=== PATIENT | female | born 1990 | race Caucasian/White ===

== ENCOUNTER 2016-06-01 23:24 | Inpatient (IN) | payer MEDICAID ==
[2016-06-01 23:46] VITALS: BP 105/57
[2016-06-02] MEDS ORDERED: Morphine Sulfate 2 mg/mL 1mL Syr IVP PRN ×2 (00:08→00:15)
[2016-06-02] MEDS: D5-0.9%NS 1,000 ML IV SCH ×2 (00:59→12:02)
[2016-06-02] MEDS ORDERED: Piperacillin Sodium/Tazobact 3.375 gm Vial IV ONE (01:48)
[2016-06-02 06:55] LABS: URINE BACTERIA OCCASIONAL /hpf (NONE SEEN); URINE BILIRUBIN SMALL (NEGATIVE); URINE BLOOD NEGATIVE (NEGATIVE); URINE COLOR YELLOW; URINE EPITHELIAL CELLS OCCASIONAL /lpf (FEW); URINE GLUCOSE (UA) NEGATIVE (NEGATIVE); URINE KETONE TRACE mg/dL (NEGATIVE); URINE PH 5.5; URINE PROTEIN NEGATIVE (NEGATIVE); URINE RBC NONE SEEN /hpf (0-5); URINE UROBILINOGEN 0.2 E.U./dL (0.2 - 1.0); URINE WBC 0-2 /hpf (0-5)
[2016-06-02 07:02] LABS: HEMATOCRIT 30.4 % (35.0-45.0); HEMOGLOBIN 10.8 gm/dL (11.7-15.5); MEAN CELL VOLUME 93.5 fl (81-100); MEAN CORPUSCULAR HEMOGLOBIN 33.2 pg (27.0-31.0); MEAN CORPUSCULAR HGB CONC 35.5 pg (28.0-36.0); MEAN PLATELET VOLUME 7.9 fl; PLATELET COUNT 325 Th/cmm (150-400); RED BLOOD COUNT 3.25 Mil/cmm (3.80-5.10); RED CELL DISTRIBUTION WIDTH 12.8 % (11.5-20.0); WHITE BLOOD COUNT 8.4 Th/cmm (4.8-10.8)
[2016-06-02 07:15] LABS: ALB/GLOB RATIO 1.2 (1.0-1.8); ALKALINE PHOSPHATASE 1107 U/L (34-104); AMYLASE SERUM 1208 U/L (29-103); ANION GAP 11.3 (7.0-16.0); BILIRUBIN,TOTAL 3.3 mg/dL (0.3-1.0); BUN - UREA NITROGEN 10 mg/dL (7-25); CALCIUM SERUM 8.6 mg/dL (8.6-10.3); CARBON DIOXIDE 21.9 mEq/L (21.0-31.0); CHLORIDE 109 mEq/L (98-107); CREATININE - SERUM 0.5 mg/dL (0.6-1.2); GLUCOSE 95 mg/dL (70-105); POTASSIUM SERUM 3.2 mEq/L (3.5-5.1); SGOT 240 U/L (13-39); SGPT/ALT 417 U/L (7-52); SODIUM SERUM 139 mEq/L (136-145)
[2016-06-02 08:10] LABS: LIPASE 3074 U/L (11-82)
[2016-06-02 08:39] LABS: BAND NEUTROPHILE 1 % (0-10); EOSINOPHIL 2 % (0-5); NEUTROPHILS 66 % (40-80); PLATELET ESTIMATE ADEQUATE (NORMAL); PLATELET MORPHOLOGY NORMAL (NORMAL); TOTAL CELLS COUNTED 100
--- NOTE | 2016-06-02 16:46 | History & Physical ---
CHIEF COMPLAINT: Abdominal pain. HISTORY OF PRESENT ILLNESS: The patient is a 25-year-old female presented to [facility] from the ER with complaints of 2 weeks of worsening epigastric pain. The patient states the pain is aching and radiates to right upper quadrant. This pain associated vomiting and diarrhea for one day. The patient denies fever, chills, chest pain, shortness of breath, cough or other complaints. The patient states she is able to tolerate p.o. intake. PAST MEDICAL HISTORY: Negative. PAST SURGICAL HISTORY: . MEDICATIONS: See medication reconciliation form. ALLERGIES: No known drug allergies. REVIEW OF SYSTEMS: See history of present illness. PHYSICAL EXAMINATION: VITAL SIGNS: On admission, temperature 98, pulse 78, blood pressure 105/57, respiration 18, O2 sat 98% on room air. GENERAL: The patient is awake, alert, nontoxic in appearance. HEENT: Normocephalic, atraumatic. Extraocular movements intact. Oropharynx clear. NECK: Supple. No thyromegaly. No lymphadenopathy. CARDIOVASCULAR: S1, S2 with no murmurs, rubs or gallops. RESPIRATORY: Clear. No wheezing or rhonchi. GASTROINTESTINAL: Soft, diffuse tenderness. Nondistended. Positive bowel sounds. GENITOURINARY: No CVA tenderness. No suprapubic tenderness. BACK: No midline tenderness. EXTREMITIES: Equal pulses bilaterally. No cyanosis, clubbing. SKIN: Negative. PSYCHIATRIC: Negative. NEUROLOGIC: Cranial nerves 2-12 intact. Extraocular movements are intact. Sensation is intact. Motor is intact. Bilateral lower grossly normal. LABORATORY DATA: On admission as follows. Hematology: WBC 8.4, hemoglobin 10.8, hematocrit 32.4, platelet count of 325, no left shift. ESR is 36. Chemistry: Sodium 139, potassium 3.2, chloride 90, bicarbonate 21, anion gap 11, BUN 10, creatinine 0.5, GFR more than 60, glucose 95, calcium 8.6, total bilirubin is 2.3, AST 240, ALT is 417, alkaline phosphatase 1107, total protein 5.8, albumin 3.2, globulin 2.6, amylase per labs and lipase is 3084. Urinalysis shows small bilirubin. Microbiology culture results pending. RADIOLOGY: Ultrasound performed at [facility] from the ER shows echogenic liver, nonspecific and seen with fatty infiltration. Cholelithiasis. Pericholecystic fluids. Medication given. Common bile duct is dilated. The intrahepatic bile ducts are dilated. Choledocholithiasis and large pancreas. Dilated pancreas. Small free fluid adjacent to the pancreas. IMPRESSION: 1. SRS. 2. Choledocholithiasis. 3. Acute pancreatitis secondary to gallstones. 4. Abdominal pain. 5. Nausea and vomiting. 6. Diarrhea. 7. Anemia. 8. Hyperkalemia. 9. Transaminitis. PLAN: The patient is admitted to Med-Surg unit. Seen on admission by Solomon Pillai. GI consultation, Dr. Schneider and associates. General Surgery consultation with Dr. [facility]. Obtain further labs and consultation. JOB# [id number] RAFIQ
[2016-06-02] MEDS: KCL 20mEq/100mL Premix 20 MEQ/100 ML PIGGYBACK IV SCH ×2 (17:41→20:09)
--- NOTE | 2016-06-02 21:03 | Admit Criteria Form ---
Admit Criteria Forms - Admit Criteria Diagnosis: PANCREATITIS Clinical Indications for Admission to Inpatient Care (Place 'X' for any and all applicable criteria): Admission is indicated for ANY ONE of the following (1)(2)(3)(4): [X]I. Acute pancreatitis[A] as indicated by 2 or more of the following: [X]a) Abdominal pain (eg, epigastric, left upper quadrant) [X]b) Serum amylase or serum lipase greater than 3 times the upper limit of normal [ ]c) Characteristic findings from abdominal imaging (eg, pancreatic inflammation, pancreatic necrosis, peripancreatic fluid collection)[B] [ ]II. Pancreatitis (acute or chronic ) requiring inpatient care as indicated by 1 or more of the following [ ]a) Inability to maintain oral hydration Hypoxemia [ ]b) Evidence of infection (eg, fever, peripancreatic abscess) [ ]c) Severe pain requiring acute inpatient management [ ]d) Hemodynamic instability [ ]e) Hypoxemia [ ]f) Acute renal failure [ ]g) Severe electrolyte abnormalities Extended stay beyond goal length of stay may be needed for (1)(11) [ ]a) Severe acute pancreatitis (10)(19) [ ]b) Persistent symptoms, ascites, or pleural effusion [ ]c) Abdominal compartment syndrome (10) [ ]d) Late complications [ ]e) Acute renal failure (27) [ ]f) Gallstones in gallbladder The original [employer] content created by [employer] has been revised. The portions of the content which have been revised are identified through the use of italic text or in bold,and [facility] has neither reviewed nor approved the modified material.All other unmodified content is copyright [facility]. Please see references footnoted in the original [facility] edition 2016 Admit Criteria Met?: Yes
[2016-06-03] MEDS: D5-0.9%NS 1,000 ML IV SCH ×2 (01:26→17:58)
--- NOTE | 2016-06-03 01:49 | Consultation ---
DATE OF CONSULTATION NOTE: 06/02/2016 at 10:00 p.m. HISTORY OF PRESENT ILLNESS: The patient is a 25-year-old female presented to [place] ER with complaints of weeks of worsening epigastric and right upper quadrant abdominal pain. She described it as a stabbing type of pain, worsening with eating foods, associated with vomiting and one episode of diarrhea. She denies any fevers or chills, chest pain, or shortness of breath. She has no chronic GI-related problems. PAST MEDICAL HISTORY: Normal. Benign. PAST SURGICAL HISTORY: . MEDICATIONS: See medication reconciliation form. ALLERGIES: No known drug allergies. REVIEW OF SYSTEMS: Otherwise negative except for GI as described above. PHYSICAL EXAMINATION: VITAL SIGNS: She is 56 kilograms. BMI is 22.9. She is afebrile. Temperature 99.0. Vital signs otherwise stable. GENERAL: She is awake, alert, in no acute distress. She is resting in bed comfortably. HEAD AND NECK: Within normal limits. She has no neck, axillary, or inguinal lymphadenopathy. LUNGS: Clear to auscultation bilaterally. There are no crackles, rales, rhonchi, or wheezing. CARDIAC: Regular rhythm and rate. No murmurs, rubs, or gallops. S1 and S2 is normal. ABDOMEN: Mild tenderness diffusely. There is no guarding, rebound, or generalized peritoneal sign. NEUROVASCULAR: Otherwise normal. No CVA, flank, or paraspinal tenderness. LABORATORY DATA: White blood cell count 8.4, H and H is 10.8 and 30.4, and platelet count 325,000. Potassium 3.2. Her bilirubin 3.3, AST is 240, ALT is 417, alkaline phosphatase . Her amylase is 1208 and lipase is 3074. She has urine bilirubin small. She has occasional urine bacteria. Her transfer records show that the gallbladder demonstrates multiple calculi. The gallbladder wall appears normal and measures 2.49. Pericholecystic fluid is visualized. Linda sign could not be evaluated due to medication. The common bile duct is dilated. Intrahepatic bile ducts are dilated as well as choledocholithiasis and large pancreas, dilated pancreatic duct. Review of records from [place]. IMPRESSION AND PLAN: Abdominal pain, abdominal tenderness, no chronic gastrointestinal-related problems or significant past medical history. She is afebrile. She has tenderness on examination. She describes her pain as 9/10 in severity. Her white blood cell count is normal, but her liver function tests are elevated, and lipase and amylase levels are high as well to recommend obtaining a CT. We will obtain an MRCP to rule out common bile duct stones. I have discussed with her the risks and benefits of laparoscopic cholecystectomy including bleeding, infection, bile duct leak, and bile duct injury. She agrees to eventual laparoscopic cholecystectomy on this admission once the common bile duct issue is cleared. If the MRCP or CT scan confirms choledocholithiasis, she may need ERCP by GI prior to the laparoscopic cholecystectomy tentatively looking at the laparoscopic cholecystectomy sometime early next week, Saturday or Saturday. [facility]# [id number]
[2016-06-03 07:33] LABS: ALB/GLOB RATIO 1.2 (1.0-1.8); ALKALINE PHOSPHATASE 1107 U/L (34-104); AMYLASE SERUM 619 U/L (29-103); BILIRUBIN,TOTAL 2.3 mg/dL (0.3-1.0); BUN - UREA NITROGEN 6 mg/dL (7-25); CHLORIDE 104 mEq/L (98-107); CREATININE - SERUM 0.4 mg/dL (0.6-1.2); GLUCOSE 86 mg/dL (70-105); LIPASE 1090 U/L (11-82); SGOT 175 U/L (13-39); SGPT/ALT 374 U/L (7-52); SODIUM SERUM 135 mEq/L (136-145)
[2016-06-03 08:05] LABS: HEMATOCRIT 30.3 % (35.0-45.0); HEMOGLOBIN 10.7 gm/dL (11.7-15.5); MEAN CELL VOLUME 93.4 fl (81-100); MEAN CORPUSCULAR HEMOGLOBIN 33.1 pg (27.0-31.0); MEAN CORPUSCULAR HGB CONC 35.4 pg (28.0-36.0); MEAN PLATELET VOLUME 7.7 fl; PLATELET COUNT 286 Th/cmm (150-400); RED BLOOD COUNT 3.24 Mil/cmm (3.80-5.10); RED CELL DISTRIBUTION WIDTH 12.7 % (11.5-20.0); WHITE BLOOD COUNT 9.1 Th/cmm (4.8-10.8)
[2016-06-03 08:59] LABS: BAND NEUTROPHILE 1 % (0-10); EOSINOPHIL 4 % (0-5); NEUTROPHILS 51 % (40-80); TOTAL CELLS COUNTED 100
[2016-06-03 09:00] LABS: PLATELET ESTIMATE ADEQUATE (NORMAL); PLATELET MORPHOLOGY NORMAL (NORMAL)
[2016-06-03] MEDS: KCL 20mEq/100mL Premix 20 MEQ/100 ML PIGGYBACK IV SCH ×2 (10:29→18:13)
--- NOTE | 2016-06-03 11:23 | Diagnostic Imaging Report ---
CT scan abdomen and pelvis without intravenous contrast HISTORY: Pain Total DLP equals 389 CTDI equals 8.0 Limited sections through the lower chest demonstrate a small left pleural effusion and nonspecific parenchymal density in the left lower lobe. Minimal right pleural effusion also noted. Nonspecific parenchymal density seen in the right lung base. The liver exhibits a homogeneous parenchyma. No focal lesions. The spleen appears normal. There is suboptimal delineation of the margins of the pancreas due to the absence of adjacent bowel contrast. Nonetheless, appears to be generalized pancreatic enlargement. No discrete focal lesions are seen. Pancreatitis cannot be excluded. Clinical correlation and correlation with laboratory data needed. No focal renal lesions. The exam of the pelvis demonstrates preservation of normal fat planes. No abnormal soft tissue masses or abnormal fluid collections. No significant bowel dilatation. There is a distended urinary bladder. IMPRESSION: 1. Generalized pancreatic enlargement. No focal lesions. Changes associated with pancreatitis cannot be excluded. Clinical correlation needed. 2. Small bilateral pleural effusions (left greater than right). Additional nonspecific parenchymal changes noted in the lower lobes of the lungs are
[2016-06-03] MEDS ORDERED: KCL 20mEq/100mL Premix 20 MEQ/100 ML PIGGYBACK IV ONE (18:06)
--- NOTE | 2016-06-03 21:23 | Progress Notes ---
SUBJECTIVE: The patient has diminished abdominal pain, barely appreciable at this time. OBJECTIVE: VITAL SIGNS: She is afebrile. Her vital signs are otherwise stable. GENERAL: She is awake, alert and oriented, in no acute distress, resting in bed. CHEST: Clear to auscultation bilaterally. She has no crackles, rales, rhonchi or wheezing. CARDIAC: Regular rhythm and rate. No murmurs, rubs or gallops. S1, S2 is normal. ABDOMEN: Soft. She has some mild tenderness in the mid abdomen. There is no guarding, rebound or generalized peritoneal sign. NEUROVASCULAR: Otherwise normal. HEENT: She has no icteric sclerae or jaundice. LABORATORY DATA: Today, her white blood cell count 9.1, H and H is 10.7 and 30.3, platelet count is 286. Her potassium level is 3.0. Her total bilirubin is 2.3, down from 3.3. AST is 175, ALT 374, alkaline phosphatase 1107, lipase is 1090. Her CT abdomen and pelvis shows generalized pancreatic enlargement, no focal lesions, changes associated with pancreatitis cannot be excluded, small bilateral pleural effusion left greater than right, no obvious gallstones or cholecystitis findings. ASSESSMENT/PLAN: The patient with abdominal pain and tenderness, although improved at this time. She is afebrile. Her liver function tests are still elevated. She had a CT scan, which is not the greatest for evaluating the common bile duct for stones, but shows no obvious biliary dilation. GI evaluation for possible ERCP evaluation. Other alternative is to proceed with laparoscopic cholecystectomy with planned intraoperative cholangiogram, which could be planned tomorrow. I will keep her n.p.o. after midnight and repeat the labs tomorrow. IV antibiotics empirically. The patient is agreeable to surgery. All the risks and benefits of the procedure were explained including bleeding, infection, bile duct injury, bile duct leak and possibility of conversion to open cholecystectomy. JOB# [id number]
--- NOTE | 2016-06-03 23:28 | Consultation ---
REASON FOR CONSULTATION: This is a 25-year-old female who was brought to the Emergency Room at [facility] with complaint of epigastric pain, nausea and vomiting for 2 weeks. HISTORY OF PRESENT ILLNESS: The patient started having above symptoms 2 weeks prior to arrival at [place] ER, gradually got worse and she started having diarrhea. She was evaluated in the ER and was found to have pericholecystic fluid suggestive of cholecystitis and gallstones, transferred to [facility]. Infectious consultation was called. The patient's antibiotic adjusted, examined as soon as possible. PAST MEDICAL HISTORY: and cholelithiasis. FAMILY HISTORY: Negative. SOCIAL HISTORY: Nonsmoker. REVIEW OF SYSTEMS: A 14-point review of system negative except above. PHYSICAL EXAMINATION: GENERAL: The patient is alert, awake, young female. VITAL SIGNS: Temperature 98.6, pulse 76, respiration is 18, blood pressure 104/61. HEENT: Mild pallor. No icterus. No plaque. NECK: Supple. No ____. LUNGS: Breath sounds bilateral vesicular. CARDIOVASCULAR: S1, S2. ABDOMEN: Epigastric tenderness present. No rebound tenderness, no ascites. No ____. NEUROLOGIC: No focal deficit. MUSCULOSKELETAL: Joints are not swollen. LABORATORY DATA: White count is 8000, hemoglobin is 10 g, platelets 325. Blood culture negative so far. DIAGNOSES: 1. Abdominal pain secondary to cholecystitis. 2. section. PLAN: The patient was started on Zosyn. Supportive care. Surgical evaluation. The patient will also need GI evaluation with ERCP versus MRCP to rule out CBD stone. Rest of the care as ordered in [facility]. Thank you, Dr. Pillai, for this consultation. JOB# [id number]
--- NOTE | 2016-06-04 00:41 | Consultation ---
REASON FOR CONSULT: Abdominal pain, abnormal LFTs. HISTORY OF PRESENT ILLNESS: This is a 25-year-old female ____ significant past medical history, who presents with both epigastric and right upper quadrant pain for the last several weeks. The patient states pain has persisted and gotten worse, subsequently prompting her to visit the Emergency Room for further evaluation. The patient states that the pain is worse with eating; however, she ____. She had associated nausea, vomiting, and diarrhea. The patient had labs done showing elevation of her lipase as well as elevated LFTs consistent with possible pancreatitis. PAST MEDICAL HISTORY: As per HPI. PAST SURGICAL HISTORY: Prior . ALLERGIES: The patient has no known drug allergies. MEDICATIONS: Please see medication reconciliation form. FAMILY HISTORY: No family history of GI malignancies. REVIEW OF SYSTEMS: As per HPI. PHYSICAL EXAMINATION: VITAL SIGNS: Temperature is 98, pulse 91, respirations 20, blood pressure 106/70. GENERAL: No acute distress. CARDIOVASCULAR: Regular ____ rhythm. ABDOMEN: Slight tenderness on palpation of the epigastric and right upper quadrant region. EXTREMITIES: No deformities. LABORATORY DATA: White count 8.4, hemoglobin 10.8, platelets are 325. Total bilirubin is 2.3, AST is ____, ALT is 374, alkaline phosphatase 1107, lipase is 3074. ASSESSMENT AND PLAN: This is a 25-year-old female with likely gallstone pancreatitis. Continue supportive care, IV fluids for treatment of pancreatitis. We will obtain MRCP to rule out underlying common bile duct stone. If this is positive, we will need ERCP. The patient also has been seen by Surgery and will likely need eventual cholecystectomy as well. Thank you for this consult and allowing me to participate in the care of this patient. JOB# [id number]
[2016-06-04 06:01] LABS: HEMATOCRIT 30.2 % (35.0-45.0); HEMOGLOBIN 10.6 gm/dL (11.7-15.5); MEAN CELL VOLUME 93.2 fl (81-100); MEAN CORPUSCULAR HEMOGLOBIN 32.6 pg (27.0-31.0); MEAN CORPUSCULAR HGB CONC 34.9 pg (28.0-36.0); MEAN PLATELET VOLUME 7.8 fl; PLATELET COUNT 309 Th/cmm (150-400); RED BLOOD COUNT 3.24 Mil/cmm (3.80-5.10); RED CELL DISTRIBUTION WIDTH 12.3 % (11.5-20.0); WHITE BLOOD COUNT 7.6 Th/cmm (4.8-10.8)
[2016-06-04 06:04] LABS: INR 1.01 (0.5-1.4); PROTHROMBIN TIME (TEST) 10.5 SECONDS (9.5-11.5)
--- NOTE | 2016-06-04 06:06 | Progress Notes ---
SUBJECTIVE: The patient is awake and alert. The patient is on IV antibiotics. The patient is on IV fluids. The patient is tolerating p.o. intake. OBJECTIVE: VITAL SIGNS: Temperature 98.6, pulse 70, blood pressure 138/87, respirations 19 and O2 saturation is 98% on room air. CARDIOVASCULAR: S1 and S2. No murmurs, rubs or gallops. RESPIRATORY: Clear. No wheeze or rhonchi. GASTROINTESTINAL: Soft, mild tender, nondistended. Positive bowel sounds. LABORATORY DATA: Hematology, WBC 9.1, hemoglobin 10.7, hematocrit 30.3, platelet count of 286 and 11% monocytes. ESR 65. Chemistry: Sodium is 135, potassium 3.0, chloride 104, bicarbonate 24, anion gap 10, BUN 6, creatinine 0.4, GFR is more than 160, glucose 86 and calcium 9.0. Total bilirubin 2.3, AST is 175, ALT is per labs and alkaline phosphatase 1107. Total protein 0.6, albumin 3.3, globulin 2.7. Amylase is 619, lipase is 1090. MICROBIOLOGY: MRSA screen from June 02 is negative. Blood culture from June 02 pending. RADIOLOGY: Abdominal pelvis CT performed on June 03, shows generalized pancreatic enlargement, no focal lesions, changes suggest pancreatitis could not be excluded and small bilateral pleural effusion, left greater than right. ASSESSMENT: 1. Acute pancreatitis. 2. Anemia. 3. Hyponatremia. 4. Hyperkalemia. 5. Transaminitis. 6. Hypoalbuminemia. 7. SIRS syndrome. 8. Cholelithiasis. 9. Abdominal pain (improved). 10. Nausea and vomiting (resolved). 11. Diarrhea (resolved). PLAN: Continue current medications and treatment. Obtain labs a.m. Awaiting MRCP results. The patient is planning for surgery on Saturday or Saturday. Further recommendations per consults. JOB# [id number] [facility]
[2016-06-04 06:22] LABS: ALB/GLOB RATIO 1.3 (1.0-1.8); ALKALINE PHOSPHATASE 1031 U/L (34-104); ANION GAP 11.1 (7.0-16.0); BILIRUBIN,TOTAL 1.8 mg/dL (0.3-1.0); BUN - UREA NITROGEN 6 mg/dL (7-25); CALCIUM SERUM 8.5 mg/dL (8.6-10.3); CARBON DIOXIDE 21.4 mEq/L (21.0-31.0); CHLORIDE 107 mEq/L (98-107); CREATININE - SERUM 0.4 mg/dL (0.6-1.2); GLUCOSE 89 mg/dL (70-105); POTASSIUM SERUM 3.5 mEq/L (3.5-5.1); SGOT 93 U/L (13-39); SGPT/ALT 298 U/L (7-52); SODIUM SERUM 136 mEq/L (136-145)
[2016-06-04 06:44] LABS: LIPASE 1191 U/L (11-82)
[2016-06-04 08:29] LABS: EOSINOPHIL 13 % (0-5); NEUTROPHILS 51 % (40-80); PLATELET ESTIMATE ADEQUATE (NORMAL); PLATELET MORPHOLOGY NORMAL (NORMAL); TOTAL CELLS COUNTED 100
--- NOTE | 2016-06-04 15:00 | Infectious Disease Prog Note ---
Infectious Disease Subjective - Review of Systems Service Date: 06/04/16 Events since last encounter: cc cholecystitis hpi- pt refused cholecystitectomy d/c plan woth po augmentin ros no fever o/e vss chest claer abd soft ext no edema dx cholecystitis plan as above Infectious Disease Objective - Results Result Diagrams: 06/04/16 05:15 06/04/16 05:15 Recent Labs: Laboratory Last Values WBC 7.6 Th/cmm (4.8-10.8) 06/04/16 05:15 RBC 3.24 Mil/cmm (3.80-5.10) L 06/04/16 05:15 Hgb 10.6 gm/dL (11.7-15.5) L 06/04/16 05:15 Hct 30.2 % (35.0-45.0) L 06/04/16 05:15 MCV 93.2 fl (81-100) 06/04/16 05:15 MCH 32.6 pg (27.0-31.0) H 06/04/16 05:15 MCHC Differential 34.9 pg (28.0-36.0) 06/04/16 05:15 RDW 12.3 % (11.5-20.0) 06/04/16 05:15 Plt Count 309 Th/cmm (150-400) 06/04/16 05:15 MPV 7.8 fl 06/04/16 05:15 Band Neutrophils % 1 % (0-10) 06/03/16 06:45 Neutrophils (Manual) 51 % (40-80) 06/04/16 05:15 Lymphocytes 30 % (20-50) 06/04/16 05:15 Monocytes 6 % (2-10) 06/04/16 05:15 Eosinophils 13 % (0-5) H 06/04/16 05:15 Platelet Estimate ADEQUATE (NORMAL) 06/04/16 05:15 Platelet Morphology NORMAL (NORMAL) 06/04/16 05:15 RBC Morph Micro Appear NORMAL (NORMAL) 06/04/16 05:15 ESR 62 mm/hr (0-30) H 06/04/16 05:15 PT 10.5 SECONDS (9.5-11.5) 06/04/16 05:15 INR 1.01 (0.5-1.4) 06/04/16 05:15 Sodium 136 mEq/L (136-145) 06/04/16 05:15 Potassium 3.5 mEq/L (3.5-5.1) 06/04/16 05:15 Chloride 107 mEq/L (98-107) 06/04/16 05:15 Carbon Dioxide 21.4 mEq/L (21.0-31.0) 06/04/16 05:15 Anion Gap 11.1 (7.0-16.0) 06/04/16 05:15 BUN 6 mg/dL (7-25) L 06/04/16 05:15 Creatinine 0.4 mg/dL (0.6-1.2) L 06/04/16 05:15 Est GFR ( Amer) > 60.0 ml/min (>90) 06/04/16 05:15 Est GFR (Non-Af Amer) > 60.0 ml/min 06/04/16 05:15 BUN/Creatinine Ratio 15.0 06/04/16 05:15 Glucose 89 mg/dL (70-105) 06/04/16 05:15 Calcium 8.5 mg/dL (8.6-10.3) L 06/04/16 05:15 Total Bilirubin 1.8 mg/dL (0.3-1.0) H 06/04/16 05:15 AST 93 U/L (13-39) H 06/04/16 05:15 ALT 298 U/L (7-52) H 06/04/16 05:15 Alkaline Phosphatase 1031 U/L (34-104) H 06/04/16 05:15 C-Reactive Protein 2.9 mg/dL (0.0-0.9) H 06/04/16 05:15 Total Protein 5.6 gm/dL (6.0-8.3) L 06/04/16 05:15 Albumin 3.2 gm/dL (3.7-5.3) L 06/04/16 05:15 Globulin 2.4 gm/dL 06/04/16 05:15 Albumin/Globulin Ratio 1.3 (1.0-1.8) 06/04/16 05:15 Amylase 619 U/L (29-103) H 06/03/16 06:45 Lipase 1191 U/L (11-82) H 06/04/16 05:15 Urine Source CLEAN C 06/02/16 06:00 Urine Color YELLOW 06/02/16 06:00 Urine Clarity SL. CLOUDY (CLEAR) 06/02/16 06:00 Urine pH 5.5 06/02/16 06:00 Ur Specific [place] 1.025 (1.005-1.030) 06/02/16 06:00 Urine Protein NEGATIVE mg/dL (NEGATIVE) 06/02/16 06:00 Urine Glucose (UA) NEGATIVE mg/dL (NEGATIVE) 06/02/16 06:00 Urine Ketones TRACE mg/dL (NEGATIVE) 06/02/16 06:00 Urine Blood NEGATIVE (NEGATIVE) 06/02/16 06:00 Urine Nitrate NEGATIVE (NEGATIVE) 06/02/16 06:00 Urine Bilirubin SMALL (NEGATIVE) H 06/02/16 06:00 Urine Urobilinogen 0.2 E.U./dL (0.2 - 1.0) 06/02/16 06:00 Ur Leukocyte Esterase NEGATIVE (NEGATIVE) 06/02/16 06:00 Urine RBC NONE SEEN /hpf (0-5) 06/02/16 06:00 Urine WBC 0-2 /hpf (0-5) 06/02/16 06:00 Ur Epithelial Cells OCCASIONAL /lpf (FEW) 06/02/16 06:00 Urine Bacteria OCCASIONAL /hpf (NONE SEEN) 06/02/16 06:00 - Physical Exam Vitals and I&O: Vital Signs Temp 97.0 F 06/04/16 11:42 Pulse 86 06/04/16 11:42 Resp 18 06/04/16 11:42 BP 121/77 06/04/16 11:42 Pulse Ox 98 06/04/16 11:42 Intake & Output 06/03/16 06/04/16 06/04/16 18:59 06:59 18:59 Intake Total 2150 150 0 Output Total 0 Balance 2150 150 0 Intake: Intake, IV Amount 1150 50 D5-0.9%Ns 1,000 ml @ 100 1000 mls/hr IV .Q10H [facility] Rx#: [id number] KCL 20mEq/100mL Premix 20 100 meq In 100 ml @ 50 mls/ hr IV Q2H [facility] Rx#: [id number] Piperacillin Sodium/ 50 50 Tazobact 3.375 gm In Sodium Chloride 0.9% 50 ml @ 100 mls/hr IV Q8H [facility] Rx#:[id number] Oral 1000 100 0 Output: Stool 0 Other: # Voids 3 3 1 # Bowel Movements 3 0
--- NOTE | 2016-06-20 19:05 | Discharge Summary ---
DISCHARGE DIAGNOSES: 1. Acute pancreatitis. 2. Anemia. 3. Hyponatremia. 4. Hyperkalemia. 5. Transaminitis. 6. Hypoalbuminemia. 7. Systemic inflammatory response syndrome. 8. Cholelithiasis. 9. Abdominal pain (improved). 10. Vomiting (resolved). 11. Diarrhea (resolved). HOSPITAL COURSE: The patient is a 25-year-old female who was transferred from [facility] to . The patient was admitted with diagnosis of systemic inflammatory response syndrome, choledocholithiasis, acute pancreatitis secondary to gallstones, abdominal pain, nausea, vomiting, diarrhea, anemia, hyperkalemia, and transaminitis. CONSULTATIONS OBTAINED: GI consultation obtained from Dr. Farrar, who recommended the patient obtain an MRCP to rule out common bile duct stone. The patient was positive for MRCP. The patient will require ERCP. The patient will require General Surgery consultation for possible cholecystectomy. The patient had CT abdomen and pelvis performed on 06/03/2016, which shows generalized pancreatic enlargement, no focal lesions, pancreatitis could not be excluded, small bilateral pleural effusion, left greater than right. The patient had a General Surgery consultation obtained from Dr. Anguiano who the patient is agreeable to surgery. Infectious Disease consultation obtained from Dr. Shyann Mccollum who recommended the patient be discharged home on Augmentin. During hospital course, the patient refused cholecystectomy. The patient left against medical advice. [facility]# [id number] RAFIQ
== END 2016-06-04 12:05 | disposition left against medical advice (07) ==
LOC: MSI 23:24
PROVIDERS: ADMIT Preventive Medicine Preventive Medicine/Occupational Environmental Medicine; ATTEND Preventive Medicine Preventive Medicine/Occupational Environmental Medicine
DX: K80.40 Calculus of bile duct with cholecystitis, unspecified, without obstruction (principal); K85.10 Biliary acute pancreatitis without necrosis or infection; R65.10 Systemic inflammatory response syndrome (SIRS) of non-infectious origin without acute organ dysfunction; E87.5 Hyperkalemia; E87.1 Hypo-osmolality and hyponatremia; E88.09 Other disorders of plasma-protein metabolism, not elsewhere classified; R11.2 Nausea with vomiting, unspecified; R19.7 Diarrhea, unspecified; D64.9 Anemia, unspecified
CPT/HCPCS: 36415-UA; 80053-TC; 81001-TC; 82150-TC; 83690-TC; 85007-TC; 85027-TC; 85610-TC; 85652-TC; 86141-TC; J2270; J2405; J2543; J3480; J7042